=== PATIENT | male | born 2005 | race Caucasian/White ===

== ENCOUNTER 2023-06-16 07:18 | Emergency (ER) | payer OTHER, SELFPAY ==
[2023-06-16 07:25] VITALS: BP 132/77; PULSE 86; RESP 18; TEMP 36.7; O2SAT 99
--- NOTE | 2023-06-16 07:30 | DI.RAD_ITS ---
Exam(s) XR CHEST 2V PA LATERAL EXAM: XR CHEST 2V PA LATERAL CLINICAL HISTORY: RUQ and chest abdominal pain. TECHNIQUE: 2D digital imaging was performed. COMPARISON: No exams were available for comparison FINDINGS: 2 views: Heart size is normal. The mediastinum is not widened. Lungs are clear. No infiltrates nor pleural effusions. IMPRESSION: No acute pulmonary findings. DATA REPOSITORY: RADIATION DOSE DELIVERED:
--- NOTE | 2023-06-16 07:30 | DI.US_ITS ---
Exam(s) US ABDOMEN LIMITED EXAM: US ABDOMEN LIMITED CLINICAL HISTORY: eval RUQ/GB, RUQ pain and nausea TECHNIQUE: Ultrasound abdomen performed using standard protocol. COMPARISON: No exams were available for comparison FINDINGS: There is no ascites evident. LIVER: Hyperechoic indicating steatosis. There are no hepatic lesions evident nor dilatation of intr ahepatic ducts. GALLBLADDER/BILIARY: Gallbladder is partially contracted. Patient is not NPO which may explain this. There are no obvious calculi seen in the gallbladder lumen and the patient was not tender over this area during scanning today. There is no pericholecystic fluid. The common hepatic duct isnot dilated, measuring 5-6mm at the level of salvador hepatis. PANCREAS: There is no evidence of pancreatic mass nor dilatation of the pancreatic duct. RIGHT KIDNEY:No evidence of solid mass, calculus, nor hydronephrosis. No cortical cysts evident. IMPRESSION: 1. No evidence of obvious cholelithiasis nor dilatation of the biliary tree. 2. Hepatic steatosis. No discrete focal hepatic lesions. 3. No other right upper quadrant ultrasound findings and there is no ascites. DATA REPOSITORY:
--- NOTE | 2023-06-16 07:33 | W.ED.GENAD ---
Discharge Plan Discharge Details Chief Complaint: Abd Prob Primary Care Provider: Unknown,Unknown ED Provider: David Colin Home Meds and New Rx's Prescriptions: No Action guanfacine 2 mg tablet extended release 24 hr 2 mg PO HS Medical Decision Making This is a very pleasant 17-year-old male with no significant past medical history aside for ADHD who presents today for right upper quadrant abdominal pain. Patient states that it began at around midnight last night, it is dull throbbing and achy. It is made worse when he lies on his back, and improved when he sits upright and has good posture. He denies any trauma. He does admit to eating a turkey sandwich with ranch dressing gates and other high fatty additives. He admits to nausea but denies vomiting. He denies any diarrhea. No personal history of gallbladder problems in the past. No other complaints at this time. No other modifying factors. Exam demonstrates minimal achiness in the right upper quadrant but no significant focal tenderness. No guarding or rebound. No pain at McBurney's point, negative Arriaga sign. Suspect symptoms are likely secondary to mild biliary colic, however hepatic abnormality or pulmonary abnormality are on the differential but less likely. Symptoms inconsistent with ACS or dissection clinically based on history and exam. We will get an ultrasound of the right upper quadrant and two-view chest x-ray, we will give IV Toradol for his mild residual pain, monitor closely and reassess. Patient will be signed out to my colleague Dr. Tasha Saldana for follow-up on labs and imaging. HPI General Date/Time Provider Initiated Documentation: 06/16/23 07:20. HPI Narrative: This is a very pleasant 17-year-old male with no significant past medical history aside for ADHD who presents today for right upper quadrant abdominal pain. Patient states that it began at around midnight last night, it is dull throbbing and achy. It is made worse when he lies on his back, and improved when he sits upright and has good posture. He denies any trauma. He does admit to eating a turkey sandwich with ranch dressing gates and other high fatty additives. He admits to nausea but denies vomiting. He denies any diarrhea. No personal history of gallbladder problems in the past. No other complaints at this time. No other modifying factors. Related Data Home Medications Medication Instructions Recorded Confirmed guanfacine 2 mg tablet,extended 2 mg PO HS 06/16/23 06/16/23 release 24 hr Allergies Allergy/AdvReac Type Severity Reaction Status Date / Time amoxicillin Allergy Severe Hives Unverified 06/16/23 07:32 General Stated Complaint: Abd Prob CHIO: 3 Review of Systems All systems reviewed & are unremarkable except as noted in HPI and below PFSH Social History Smoking risk assessment performed?: No Exam Narrative Exam Narrative: 1.Const: Well-nourished, Well-developed, appearing stated age 2.Eyes: PERRL, no conjunctival injection, and symmetrical lids. 3.ENT: Atraumatic external nose and ears. Moist MM. Neck: Symmetric, trachea midline, No thyromegaly. 4.CVS: +S1/S2, No murmurs or gallops. Peripheral pulses 2+ and equal in all extremities. Brisk capillary refill in all extremities. 5.RESP: Unlabored respiratory effort. Clear to auscultation bilaterally. No wheezes rales or rhonchi 6.GI: Soft, Nontender/Nondistended, No hepatosplenomegaly. No guarding or rebound. Minimal achiness around right lower ribs and right upper quadrant, however negative Arriaga's no pain at McBurney's point. No significant abdominal tenderness otherwise on palpation. 7.MSK: Normocephalic/Atraumatic, Extremities w/o deformity or ttp No cyanosis or clubbing, Normal movement of all extremities 8.Skin: Warm, Dry. No rashes or lesions. 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 Sensation grossly intact, no focal neurologic deficits. 10.Psych: (AAO) x3. Appropriate mood and affect Course Vital Signs Vital signs: Vital Signs Temperature 36.7 C 06/16/23 07:25 Pulse 86 06/16/23 07:25 Respiratory Rate 18 06/16/23 07:25 Blood Pressure 132/77 06/16/23 07:25 Pulse Oximetry 99 06/16/23 07:25 Temperature 36.7 C 06/16/23 07:25 Temperature Source Oral 06/16/23 07:25 Pulse 86 06/16/23 07:25 Respiratory Rate 18 06/16/23 07:25 Blood Pressure 132/77 06/16/23 07:25 Blood Pressure Position Sitting 06/16/23 07:25 Pulse Oximetry 99 06/16/23 07:25 Oxygen Delivery Method Room Air 06/16/23 07:25 Oxygen Flow Rate 0 06/16/23 07:25
[2023-06-16] MEDS: Ketorolac 30 MG/ML VIAL (08:00)
[2023-06-16] MEDS: Normal Saline 500 ML IV (08:00)
[2023-06-16 08:05] LABS: Abs Immature Grans 0.04 10^3/uL (0.0-0.06); Absolute Basophil Count 0.05 10^3/uL (0.0-0.2); Absolute Eosinophil Count 0.09 10^3/uL (0.0-0.7); Absolute Lymphocyte Count 3.63 10^3/uL (1.2-3.4); Absolute Monocyte Count 0.71 10^3/uL (0.1-0.8); Absolute Neutrophil Count 5.81 10^3/uL (1.2-6.7); Basophils % 0.5; Eosinophils % 0.9; HGB 13.3 g/dL (13.5-17.5); Immature Grans % 0.4; Lymphocytes % 35.1; MCH 27.5 pg (27.0-33.0); MCHC 33.3 % (32.0-36.0); MCV 83 fL (80-95); MPV 11.9 fL (8.0-11.0); Monocytes % 6.9; Neutrophils % 56.2; Platelet Count 226 10^3/uL (130-400); RBC 4.84 10^6/uL (4.36-5.78); RDW 11.6 % (11.8-14.1); RDW-SD 35.2 fL; WBC 10.33 10^3/uL (4.4-10.8)
[2023-06-16 08:30] LABS: ALT 96 U/L (16-63); AST 36 U/L (15-37); Albumin 4.5 g/dL (3.4-5.0); Alkaline Phosphatase 105 U/L (46-116); Anion Gap 10.1 mmol/L (3-11); BUN 12 mg/dL (7-18); Bilirubin, Total 0.3 mg/dL (0.2-1.0); CO2 26.9 mmol/L (21.0-32.0); CREATININE 0.9 mg/dL (0.70-1.30); Calcium 9.3 mg/dL (8.5-10.1); Chloride 102 mmol/L (98-107); Estimated GFR 126.17 (mL/min/1.73m2); Glucose 96 mg/dL (74-106); Lipase 24 U/L (16-77); Potassium 3.9 mmol/L (3.5-5.1); Sodium 139 mmol/L (136-145); Total Protein 8.3 g/dL (6.4-8.2)
--- NOTE | 2023-06-16 08:45 | RT.EKG_ITS ---
APPROVED REPORT Exam: Resting ECG Reason for Exam: upper abd pain Patient Location: E HR:67 bpm ECG Measurements Heart Rate 67 AXIS [place] 177 P 55 QRSd 87 QRS 57 QT 390 T 47 QTc 411 Conclusion Sinus arrhythmia...V-rate 54- 77, variation>10% sinus rhtyhm, normal axis, normal interals, non ischemic
--- NOTE | 2023-06-16 09:25 | W.EDPROG ---
Date of service: 06/16/23 Time of Service: 09:25 Medical Decision Making Resting comfortably no acute distress. Given positional discomfort have obtained EKG to screen for any signs of pericarditis, no ST segment elevations or OK depressions. Patient is afebrile nontoxic no respiratory symptoms. Symptoms have resolved since he has been here. Ultrasound unremarkable. Home care instructions and return precautions given. Sign Out Sign Out Data: Sign Out Comment: Right upper quadrant abdominal pain, nausea. Follow-up by ultrasound, as well as labs. Last updated by David Colin DO at 06/16/23 07:37 Discharge Plan Disposition Patient Disposition: Home Discharge Details Chief Complaint: Abd Prob Clinical Impression: Abdominal pain Primary Care Provider: Unknown,Unknown ED Provider: Trace Mcdonough Home Meds and New Rx's Prescriptions: No Action guanfacine 2 mg tablet extended release 24 hr 2 mg PO HS Discharge Instructions Instructions: Abdominal Pain (ED) Additional Instructions: Please follow-up with your primary care physician. Please return to the emergency department for any worsening symptoms
--- NOTE | 2023-06-17 13:17 | NUR.NOTE ---
Accessed chart to determine orders for EKG and to determine whether or not one needs to be cancelled. Nursing Note:
== END 2023-06-16 10:02 | disposition home or self-care (01) ==
PROVIDERS: Student in an Organized Health Care Education/Training Program; Emergency Provider Emergency Medicine
DX: R10.11 Right upper quadrant pain (principal)
CPT/HCPCS: 36415; 80053; 83690; 93005; 96360; 99285; 71046; 76705; 85025; 93010; 99284; J1885

== ENCOUNTER 2024-05-23 10:50 | Outpatient (CLI) | payer BC, SELFPAY | END 2024-05-23 10:51 | disposition home or self-care (01) | LOC: DI.KIM 10:51 | PROVIDERS: PCP Family Medicine; Visit Provider Family Medicine | DX: R55 Syncope and collapse (principal); F98.8 Other specified behavioral and emotional disorders with onset usually occurring in childhood and adolescence | CPT/HCPCS: 93010 ==